=== PATIENT | male | born 1980 | race Two or more races ===

== ENCOUNTER → 2023-08-31 | Emergency (ER) | payer OTHER ==
[~2023-08-31] VITALS: Ht 177.8 cm; Wt 88.5 kg
[~2023-08-31] MED LIST: 0.9 % SODIUM CHLORIDE 1,000 ML IV SCH; BUPROPION XL450 MG PO; CLONAZEPAM1 M1 PO; LIPITOR20 MG PO; ONDANSETRON HCL 2 MG/ML VIAL IV SCH; ONDANSETRON ODT8 MG PO; PEPCID AC20 MG PO; RESTORIL30 MG PO; VASOTEC20 M1 PO
[2023-08-31 10:02] LABS: HEMATOCRIT 43.6 % (39.0-48.0); HEMOGLOBIN 14.7 g/dL (13-16.00); MEAN CELL VOLUME 93.8 fL (80.0-100.00); MEAN CORPUSCULAR HEMOGLOBIN 31.7 pg (27.00-32.0); MEAN CORPUSCULAR HGB CONC 33.8 g/dl (32.0-36.0); PLATELET COUNT 234 K/uL (150-450); RED BLOOD COUNT 4.64 M/uL (4.00-6.00); RED CELL DISTRIBUTION WIDTH 14.3 % (11.5-14.5)
[2023-08-31 10:31] LABS: CALCIUM 9.4 mg/dL (8.5-10.1); CREATININE SERUM 1.66 mg/dL (0.70-1.30); GFR 45.66; POTASSIUM 3.65 mEq/L (3.5-5.1)
== END | disposition home or self-care (01) ==
LOC: ER 08:09
PROVIDERS: Emergency Medicine
DX: K29.70 Gastritis, unspecified, without bleeding (principal); R11.10 Vomiting, unspecified; I10 Essential (primary) hypertension; Z91.013 Allergy to seafood
CPT/HCPCS: 36415; 96365; 99282; J2405; J7030